=== PATIENT | female | born 1990 | race Caucasian/White ===

== ENCOUNTER 2016-11-14 11:46 | Emergency (ER) | payer BC, MEDICAID ==
--- NOTE | 2016-11-20 09:21 | ER ---
ADMIT: 11/14/2016 RM/LOC: ER [facility] MR#: [id number] [address] [facility] [address] [place], [place] [id number] DELONG, PANKAJ Nataly [address] [address] Emergency Room Report SEX: F AGE: 26 : 1990 DATE: 11/14/2016 ADDENDUM: CHIEF COMPLAINT: Sore throat. HISTORY OF PRESENT ILLNESS: This is a 26-year-old, who developed a fever in the last 24 hours. Also has a sore throat that is her only complaint. Denies any abdominal pain. Denies any nausea, vomiting, or diarrhea. Denies any cough. PAST MEDICAL HISTORY: Double urethra, tonsillectomy, wisdom teeth surgery, history of herpes. MEDICATIONS: Valacyclovir as needed. ALLERGIES: NO KNOWN ALLERGIES. SOCIAL HISTORY: Denies any drug use but does drink alcohol occasionally. Does smoke occasionally. FAMILY HISTORY: Noncontributory. REVIEW OF SYSTEMS: CONSTITUTIONAL: She has had some fever, chills, and sweats in the last 24 hours. HEENT: Denies any real headache except for when the fever is elevated, but does have a headache now with a fever. Mostly complains of a sore throat. CARDIOVASCULAR and RESPIRATORY: Denies any chest pain or shortness breath. GI and : Denies any nausea, vomiting, diarrhea. Denies any dysuria. All systems otherwise negative. PHYSICAL EXAMINATION: VITAL SIGNS: Blood pressure 96/61, pulse is 96, respirations 16, temperature is 101.6, and saturation of oxygen 100% on room air. GENERAL APPEARANCE: She is in mild distress, but alert. HEENT: Her pharynx is actually nonerythemic. She does not have tonsils. Her ears, her TMs are non-erythemic bilateral. NECK: I feel just anterior lymph node but no posterior. HEART: Regular rate and rhythm. LUNGS: CTA bilateral. ABDOMEN: Soft and nontender. SKIN: Normal color, warm, and dry. No rashes noted. NEURO/PSYCH: She is alert and oriented x3. ADMIT: 11/14/2016 RM/LOC: ER [facility] MR#: [id number] [place], [place] [id number] PANKAJ DELONG [address] [place] [address] Emergency Room Report SEX: F AGE: 26 : 1990 COURSE IN EMERGENCY ROOM: Urine was collected, it showed 1+ protein, 70 glucose, 1+ blood, 6 red blood cells. Her mono test is negative. Her strep test is negative. Her test is negative. At this time, I believe this is probably more viral. She does believe that she got her flu shot last fall. I told her it could be influenza, could be another virus. Since her only symptoms are sore throat and it looks clear, I do not feel that there is any further workup is needed at this time. She feels okay with that. She is going to go home. Use Motrin or Tylenol for the fever, push fluids, and follow up with her primary care physician. Return to the ER if worsen. CLINICAL IMPRESSION: Fever. BLAINE Pierce / Tien Zavala MD / modl JOB #: [id number] CC: Tien Zavala MD, Attending Physician Yumiko Mike MD, Family Physician
== END 2016-11-14 13:45 | disposition home or self-care (01) ==
LOC: ER 11:46
DX: J02.9 Acute pharyngitis, unspecified (principal)